=== PATIENT | male | born 1990 | race Caucasian/White ===

== ENCOUNTER 2022-11-06 09:09 | Emergency (ER) | payer BC, MEDICAID ==
[~2022-11-06] VITALS: Ht 170.2 cm; Wt 77.0 kg
[2022-11-06] MEDS ORDERED: IBUP-1986 PO (10:23)
[2022-11-06] MEDS ORDERED: AMOX-580 PO (10:23)
[2022-11-06 10:31] VITALS: BP 135/92
== END 2022-11-06 10:33 | disposition home or self-care (01) ==
LOC: ER 09:10
DX: K04.7 Periapical abscess without sinus (principal); F12.90 Cannabis use, unspecified, uncomplicated; Z79.2 Long term (current) use of antibiotics; Z79.899 Other long term (current) drug therapy
CPT/HCPCS: 99283